=== PATIENT | male | born 1975 | race Caucasian/White ===

== ENCOUNTER 2019-04-24 22:07 | Emergency (ER) | payer SELFPAY ==
[~2019-04-24] VITALS: Ht 170.2 cm; Wt 75.0 kg
[~2019-04-24 22:07] MED LIST: NAPR-688 PO; ONDA4TAB8 PO
[2019-04-24 22:11] VITALS: Ht 170.2 cm; Wt 75.0 kg
[2019-04-24] MEDS ORDERED: SOD CHLORIDE 0.9% 1,000 ML IV STA (22:13)
[2019-04-24] MEDS ORDERED: KETOROLAC 15 MG INJ IV STA (22:13)
[2019-04-24] MEDS ORDERED: LIDOCAINE/MYLANTA 40 ML BTL PO STA (22:13)
[2019-04-24] MEDS ORDERED: ONDANSETRON 4 MG INJ IV STA (22:13)
[2019-04-24] MEDS ORDERED: BELLADONNA/PHENOBARBITAL TAB PO STA (22:13)
[2019-04-25 03:50] VITALS: BP 118/76; PULSE 87; RESP 15
== END 2019-04-25 03:50 | disposition home or self-care (01) ==
LOC: E/R 22:07
DX: F10.920 Alcohol use, unspecified with intoxication, uncomplicated (principal); D61.818 Other pancytopenia; K29.20 Alcoholic gastritis without bleeding; I10 Essential (primary) hypertension; F17.210 Nicotine dependence, cigarettes, uncomplicated; R93.0 Abnormal findings on diagnostic imaging of skull and head, not elsewhere classified; Z21 Asymptomatic human immunodeficiency virus [HIV] infection status
CPT/HCPCS: 36415; 70450; 80053; 83690; 84484; 85025; 96374; 96375; 99285; J1885; J2405; J7030